=== PATIENT | male | born 1985 | race Two or more races ===

== ENCOUNTER 2022-02-23 10:11 | Emergency (ER) | payer MEDICAID, OTHER ==
[~2022-02-23] VITALS: Ht 172.7 cm; Wt 83.9 kg
[2022-02-23 10:25] VITALS: BP 116/75
== END 2022-02-23 10:58 | disposition home or self-care (01) ==
LOC: ER 10:11
DX: Z45.2 Encounter for adjustment and management of vascular access device (principal); J45.909 Unspecified asthma, uncomplicated; F17.210 Nicotine dependence, cigarettes, uncomplicated